=== PATIENT | male | born 1950 | race Caucasian/White ===

== ENCOUNTER → 2019-10-18 | Outpatient (CLI) | payer MEDICARE ==
[~2019-10-18] MED LIST: ANUSOL-HC25 MG RC; ASPIRIN81 M1 PO; CLARITIN10 MG PO; COUMADIN4 M1 PO; DIGOXIN0.125 MG PO; DIOVAN40 MG PO; GLYBURIDE5 MG PO; HUMALOG100 UNIT/2 SQ; HYDROCODONE BIT1 T11 PO; LIPITOR40 MG PO; LOPRESSOR100 M1 PO; MEDROL DOSEPAK4 MG PO; METFORMIN500 MG PO; METOPROLOL SR50 MG PO; NEURONTIN300 MG PO; NOVOLOG 70/30 M10 ML; PHENERGAN25 M1 PO; PRILOSEC20 MG PO; ROPINIROLE HYD0.5 MG PO; VIBRAMYCIN100 MG PO; ZANTAC 150150 MG PO; ZYRTEC10 MG PO
[2019-10-18 10:08] LABS: BASO % 0.4 % (0.0-1.0); EOS # 0.2 10*3/uL (0.0-0.4); EOS % 3.1 % (1.0-4.0); HEMATOCRIT 43.5 % (42.0-52.0); HEMOGLOBIN 13.8 g/dl (14.0-18.0); LYMPH # 2.7 10*3/uL (1.3-4.4); LYMPH % 36.2 % (27.0-41.0); MEAN CORPUSCULAR HGB 29.2 pg (27.0-31.0); MEAN CORPUSCULAR HGB CONC 31.7 g/dl (33.0-37.0); MEAN PLATELET VOLUME 11.1 fl (9.6-12.3); MONO # 0.7 10*3/uL (0.1-1.0); MONO % 9.7 % (3.0-9.0); NEUT # 3.7 10*3/uL (2.3-7.9); NEUT % 50.3 % (47.0-73.0); PLATELET COUNT AUTOMATED 244 10*3/uL (130-400); RED BLOOD COUNT 4.73 10*6/uL (4.50-5.90); RETICULOCYTE % 2.07 % (0.50-2.50); WHITE BLOOD COUNT 7.4 10*3/uL (4.8-10.8)
[2019-10-18 10:32] LABS: ALBUMIN 2.7 gm/dl (3.1-4.5); POTASSIUM 4.1 mmol/L (3.5-5.1)
[2019-10-18 10:44] LABS: CREATININE 1.66 mg/dL (0.70-1.30); THYROID STIM HORMONE (HS) 4.76 uIU/ml (0.358-4.75); THYROXINE (T4) TOTAL 10.6 ug/dl (4.5-12.1); TOTAL PROTEIN 7.4 gm/dL (6.4-8.2)
[2019-10-18 12:01] LABS: FERRITIN 49.6 ng/mL (22.0-322.0); VITAMIN D, 25-HYDROXY 31.2 ng/mL (30-100)
== END | disposition home or self-care (01) ==
LOC: LAB 09:10
PROVIDERS: Family Medicine
DX: R79.89 Other specified abnormal findings of blood chemistry (principal); R53.83 Other fatigue; E55.9 Vitamin D deficiency, unspecified; Z79.899 Other long term (current) drug therapy

== ENCOUNTER → 2019-10-20 | Outpatient (CLI) | payer MEDICARE ==
[2019-10-20 17:06] LABS: BILIRUBIN NEGATIVE (NEGATIVE); BLOOD 1+ (NEGATIVE); CLARITY CLEAR (CLEAR); COLOR YELLOW (YELLOW); GLUCOSE 3+ (NEGATIVE); KETONE NEGATIVE (NEGATIVE); LEUKO ESTERASE NEGATIVE (NEGATIVE); NITRITE NEGATIVE (NEGATIVE); SPECIFIC GRAVITY 1.015 (1.005-1.030); UROBILINOGEN 0.2 E.U./dl (0.2-1.0)
[2019-10-20 17:07] LABS: BACTERIA 1+; HYALINE CAST 0-2; RBC 0-2 rbc/hpf (0-2)
== END | disposition home or self-care (01) ==
LOC: LAB 15:44
PROVIDERS: Family Medicine
DX: E55.9 Vitamin D deficiency, unspecified (principal); R79.89 Other specified abnormal findings of blood chemistry; R53.83 Other fatigue; Z79.899 Other long term (current) drug therapy

== ENCOUNTER → 2019-11-10 | Outpatient (CLI) | payer MEDICARE | END | disposition home or self-care (01) | LOC: RESCLI 00:33 | DX: I13.10 Hypertensive heart and chronic kidney disease without heart failure, with stage 1 through stage 4 chronic kidney disease, or unspecified chronic kidney disease (principal); N18.3 Chronic kidney disease, stage 3 (moderate); E11.22 Type 2 diabetes mellitus with diabetic chronic kidney disease; E11.42 Type 2 diabetes mellitus with diabetic polyneuropathy; E78.5 Hyperlipidemia, unspecified; J45.909 Unspecified asthma, uncomplicated; K21.9 Gastro-esophageal reflux disease without esophagitis; N40.0 Benign prostatic hyperplasia without lower urinary tract symptoms; E78.1 Pure hyperglyceridemia; N32.89 Other specified disorders of bladder; Z79.899 Other long term (current) drug therapy; Z98.890 Other specified postprocedural states ==

== ENCOUNTER → 2019-11-16 | Outpatient (CLI) | payer MEDICARE ==
[2019-11-16 13:20] LABS: ALBUMIN 2.6 gm/dl (3.1-4.5); CREATININE 1.57 mg/dL (0.70-1.30); POTASSIUM 3.6 mmol/L (3.5-5.1); TOTAL PROTEIN 7.4 gm/dL (6.4-8.2)
== END | disposition home or self-care (01) ==
LOC: LAB 12:17
PROVIDERS: Urology
DX: Z12.5 Encounter for screening for malignant neoplasm of prostate (principal); I10 Essential (primary) hypertension; D40.0 Neoplasm of uncertain behavior of prostate; R53.83 Other fatigue

== ENCOUNTER → 2019-11-18 | Outpatient (CLI) | payer MEDICARE ==
[2019-11-18 12:41] LABS: BILIRUBIN NEGATIVE (NEGATIVE); BLOOD 1+ (NEGATIVE); CLARITY SL CLOUDY (CLEAR); COLOR YELLOW (YELLOW); GLUCOSE 1+ (NEGATIVE); KETONE NEGATIVE (NEGATIVE); LEUKO ESTERASE NEGATIVE (NEGATIVE); NITRITE NEGATIVE (NEGATIVE); UROBILINOGEN 0.2 E.U./dl (0.2-1.0)
[2019-11-18 12:44] LABS: BACTERIA 3+
== END | disposition home or self-care (01) ==
LOC: LAB 00:59 → CT 11:00 → LAB 11:00
PROVIDERS: Nurse Practitioner Family
DX: I12.9 Hypertensive chronic kidney disease with stage 1 through stage 4 chronic kidney disease, or unspecified chronic kidney disease (principal); N18.9 Chronic kidney disease, unspecified; I25.10 Atherosclerotic heart disease of native coronary artery without angina pectoris; R35.0 Frequency of micturition; R53.83 Other fatigue; D40.0 Neoplasm of uncertain behavior of prostate; N28.1 Cyst of kidney, acquired; K42.9 Umbilical hernia without obstruction or gangrene; K76.0 Fatty (change of) liver, not elsewhere classified

== ENCOUNTER → 2020-03-16 | Outpatient (CLI) | payer MEDICARE | END | disposition home or self-care (01) | LOC: RESCLI 01:53 | DX: I12.9 Hypertensive chronic kidney disease with stage 1 through stage 4 chronic kidney disease, or unspecified chronic kidney disease (principal); E11.22 Type 2 diabetes mellitus with diabetic chronic kidney disease; N18.3 Chronic kidney disease, stage 3 (moderate); E78.5 Hyperlipidemia, unspecified; E11.42 Type 2 diabetes mellitus with diabetic polyneuropathy; K21.9 Gastro-esophageal reflux disease without esophagitis; J30.2 Other seasonal allergic rhinitis; N32.81 Overactive bladder; E53.8 Deficiency of other specified B group vitamins; E55.9 Vitamin D deficiency, unspecified; R53.83 Other fatigue; G47.33 Obstructive sleep apnea (adult) (pediatric); Z79.899 Other long term (current) drug therapy ==

== ENCOUNTER → 2020-04-11 | Outpatient (CLI) | payer MEDICARE ==
--- NOTE | 2020-04-10 10:40 | NUR ---
RESTING SCANS COMPLETED. BROUGHT INTO STRESS TEST ROOM. PT STATES, "I TOOK A SIP OF COKE WHILE WAITING FOR STRESS TEST." DR. WESLEY NOTIFIED AND REMAINDER OF STRESS TEST CANCELLED AND RESCHEDULED FOR AM. INSTRUCTION GIVEN TO PT AND OPHTHALMOLOGY ASSISTANT. IV DISCONTINUED AND DISCHARGED IN STABLE CONDITION.
[~2020-04-11] MED LIST changes: +ARNUITY ELLIPT50 MCG INH; +HUMULIN R500 UNIT/1 SC; +HUMULIN R500 UNIT/1 SQ; +LOTEMAX 0.5% 1010 ML OS; +MAGNESIUM OXID400 MG PO; +MONTELUKAST SOD10 MG PO; +PEPCID AC10 M2 PO; +PREDNISOLONE ACE5 M5 OU; +PROAIR HFA8.5 GM INH; +PROLENSA3 ML OU; +SODIUM BICARBO650 MG PO; +SOOTHE DEVI; +SPIRIVA18 MCG PO; +VANICREAM453 GM T; +VENT7GM INH; +VESICARE5 MG PO; +VICTOZA 2-0.6 MG/0.1 SC; +VIT B12 PO; +VIT D PO; +[UNRECOGNIZED DRUG - OTHER] OS
--- NOTE | 2020-04-11 10:00 | NUR ---
INFORMED CONSENT OBTAINED FOR LEXISCAN NUCLEAR STRESS TEST WITH DR. WESLEY. RESTING EKG NSR WITH A RESTING HR OF 73 WITH BP OF 122/74. LUNGS CLEAR WITH SPO2 OF 100% ON ROOM AIR. PT COMPLETED A 1:00 LEXISCAN PROTOCOL RECEIVING LEXISCAN 0.4 MG IV OVER 10 SECONDS. HAD NO CHEST PAIN OR ANY ST CHANGES. DID C/O FEELING DIZZY AND NAUSEA THAT WAS RELIEVED IN RECOVERY. HAD A PEAK HR OF 91 WITH BP OF 122/64. LAST RECOVERY HR OF 94 WITH BP OF 124/68. AWAITING SCANNING IN STABLE CONDITION.
== END | disposition home or self-care (01) ==
LOC: CARD 04-10 00:20
DX: R94.31 Abnormal electrocardiogram [ECG] [EKG] (principal); I25.9 Chronic ischemic heart disease, unspecified; R94.39 Abnormal result of other cardiovascular function study

== ENCOUNTER → 2020-11-22 | Outpatient (CLI) | payer MEDICARE | END | disposition home or self-care (01) | LOC: RESCLI 07:37 | PROVIDERS: ATTEND Internal Medicine Nephrology | DX: I12.9 Hypertensive chronic kidney disease with stage 1 through stage 4 chronic kidney disease, or unspecified chronic kidney disease (principal); N18.30 Chronic kidney disease, stage 3 unspecified; E78.5 Hyperlipidemia, unspecified; E11.42 Type 2 diabetes mellitus with diabetic polyneuropathy; J45.909 Unspecified asthma, uncomplicated; K21.9 Gastro-esophageal reflux disease without esophagitis; E55.9 Vitamin D deficiency, unspecified; N32.81 Overactive bladder; G47.33 Obstructive sleep apnea (adult) (pediatric); J45.901 Unspecified asthma with (acute) exacerbation; Z79.899 Other long term (current) drug therapy ==

== ENCOUNTER → 2021-01-29 | Outpatient (CLI) | payer MEDICARE | END | disposition home or self-care (01) | LOC: RESCLI 00:11 | PROVIDERS: ATTEND Internal Medicine | DX: I10 Essential (primary) hypertension (principal); E78.5 Hyperlipidemia, unspecified; J45.909 Unspecified asthma, uncomplicated; K21.9 Gastro-esophageal reflux disease without esophagitis; E55.9 Vitamin D deficiency, unspecified; N32.81 Overactive bladder; G47.33 Obstructive sleep apnea (adult) (pediatric); E11.42 Type 2 diabetes mellitus with diabetic polyneuropathy; G62.9 Polyneuropathy, unspecified; Z79.4 Long term (current) use of insulin; Z79.899 Other long term (current) drug therapy; Z98.890 Other specified postprocedural states; Z88.8 Allergy status to other drugs, medicaments and biological substances ==

== ENCOUNTER → 2021-04-11 | Outpatient (CLI) | payer MEDICARE | END | disposition home or self-care (01) | LOC: RESCLI 04:56 | PROVIDERS: ATTEND Internal Medicine | DX: I10 Essential (primary) hypertension (principal); E78.5 Hyperlipidemia, unspecified; E11.42 Type 2 diabetes mellitus with diabetic polyneuropathy; K21.9 Gastro-esophageal reflux disease without esophagitis; J30.2 Other seasonal allergic rhinitis; E55.9 Vitamin D deficiency, unspecified; Z79.899 Other long term (current) drug therapy; Z98.890 Other specified postprocedural states ==

== ENCOUNTER 2021-06-11 10:46 | Inpatient (IN) | payer MEDICARE ==
[~2021-06-11] VITALS: Ht 180.3 cm; Wt 120.7 kg
[2021-06-11 11:00] VITALS: BP 147/72
[2021-06-11 12:00] VITALS: BP 150/74
[2021-06-11 12:31] LABS: MEAN CELL VOLUME 90.3 fl (80.0-94.0); MEAN CORPUSCULAR HGB 28.7 pg (27.0-31.0); MEAN CORPUSCULAR HGB CONC 31.8 g/dl (33.0-37.0); MEAN PLATELET VOLUME 10.2 fl (9.6-12.3); PLATELET COUNT AUTOMATED 224 10*3/uL (130-400); RED BLOOD COUNT 4.21 10*6/uL (4.50-5.90); RED CELL DISTRI WIDTH 13.7 % (0-14.5); WHITE BLOOD COUNT 6.8 10*3/uL (4.8-10.8)
[2021-06-11 12:45] LABS: ALBUMIN 2.9 gm/dl (3.1-4.5); CREATININE 1.85 mg/dL (0.70-1.30); POTASSIUM 4.1 mmol/L (3.5-5.1); TOTAL PROTEIN 7.6 gm/dL (6.4-8.2)
[2021-06-11 13:00] LABS: PLATELET SUFFICIENCY NORMAL (NORMAL); TOTAL CELLS COUNTED 100 #CELLS
[2021-06-11 16:00] VITALS: BP 150/74
[2021-06-11 16:57] LABS: BILIRUBIN Negative (Negative); BLOOD 2+ (Negative); CLARITY Clear (Clear); COLOR Yellow (Yellow); GLUCOSE Trace (Negative); KETONE Negative (Negative); LEUKO ESTERASE Negative (Negative); NITRITE Negative (Negative); PH 5.5 (4.5-8.0); UROBILINOGEN 0.2 E.U./dl (0.0-1.0)
[2021-06-11 17:33] LABS: BACTERIA 2+; EPITHELIAL CELLS 0-2
[2021-06-11 20:00] VITALS: BP 150/74
[2021-06-11 22:20] VITALS: BP 155/73
[2021-06-12 06:52] LABS: BASO % 0.2 % (0.0-1.0); HEMATOCRIT 38.2 % (42.0-52.0); LYMPH % 18.8 % (27.0-41.0); MEAN CELL VOLUME 92.3 fl (80.0-94.0); MEAN CORPUSCULAR HGB 28.3 pg (27.0-31.0); MEAN CORPUSCULAR HGB CONC 30.6 g/dl (33.0-37.0); MEAN PLATELET VOLUME 10.8 fl (9.6-12.3); MONO # 0.2 10*3/uL (0.1-1.0); MONO % 3.5 % (3.0-9.0); NEUT % 77.1 % (47.0-73.0); PLATELET COUNT AUTOMATED 227 10*3/uL (130-400); RED BLOOD COUNT 4.14 10*6/uL (4.50-5.90); RED CELL DISTRI WIDTH 13.6 % (0-14.5); WHITE BLOOD COUNT 5.2 10*3/uL (4.8-10.8)
[2021-06-12 07:08] LABS: TOTAL PROTEIN 7.6 gm/dL (6.4-8.2)
[2021-06-12 07:15] LABS: ALBUMIN 2.6 gm/dl (3.1-4.5); CREATININE 1.9 mg/dL (0.70-1.30)
[2021-06-12 07:32] LABS: VITAMIN D, 25-HYDROXY 47.7 ng/mL (30-100)
[2021-06-12 07:48] LABS: POTASSIUM 5.2 mmol/L (3.5-5.1); THYROID STIM HORMONE (HS) 0.862 uIU/ml (0.358-4.75)
[2021-06-12 07:53] LABS: ACT PARTIAL THROMBO TIME 32.5 SECONDS (20.0-32.1); INTERNATIONAL NORM RATIO 1.1 (2.0-3.5)
[2021-06-12 08:00] VITALS: BP 137/67
[2021-06-12 12:00] VITALS: BP 139/54
[2021-06-12] MEDS ORDERED: LIPITOR80 MG PO (14:08)
[2021-06-12] MEDS ORDERED: FAMOTIDINE20 M1 PO (14:09)
[2021-06-12] MEDS ORDERED: AMLODIPINE BESYL5 MG PO (14:10)
[2021-06-12] MEDS ORDERED: CARVEDILOL25 MG PO (14:11)
[2021-06-12] MEDS ORDERED: VICTOZA 2-0.6 MG/0.1 SC (14:18)
[2021-06-12] MEDS ORDERED: NOVOLIN 70100 UNIT/1 SC (14:20)
[2021-06-12] MEDS ORDERED: NOVOLOG MI100 UNIT/2 SC ×2 (14:21→14:28)
[2021-06-12] MEDS ORDERED: HUMALOG100 UNIT/2 SC (14:25)
[2021-06-12] MEDS ORDERED: OMEPRAZOLE40 MG PO (14:31)
[2021-06-12] MEDS ORDERED: HUMALOG 50/50 SC (14:53)
[2021-06-12 15:42] VITALS: BP 149/50
[2021-06-12 20:00] VITALS: BP 150/74
[2021-06-13] VITALS: BP 154/80
[2021-06-13 07:56] LABS: ALBUMIN 2.6 gm/dl (3.1-4.5); CREATININE 2.01 mg/dL (0.70-1.30)
[2021-06-13 07:59] LABS: TOTAL PROTEIN 7.3 gm/dL (6.4-8.2)
[2021-06-13 08:00] VITALS: BP 163/75
[2021-06-13 08:06] LABS: BASO % 0.1 % (0.0-1.0); HEMATOCRIT 34.8 % (42.0-52.0); LYMPH # 1.3 10*3/uL (1.3-4.4); LYMPH % 15.9 % (27.0-41.0); MEAN CELL VOLUME 89.7 fl (80.0-94.0); MEAN CORPUSCULAR HGB 28.6 pg (27.0-31.0); MEAN CORPUSCULAR HGB CONC 31.9 g/dl (33.0-37.0); MEAN PLATELET VOLUME 11.3 fl (9.6-12.3); MONO # 0.8 10*3/uL (0.1-1.0); MONO % 9.5 % (3.0-9.0); NEUT % 74.3 % (47.0-73.0); PLATELET COUNT AUTOMATED 241 10*3/uL (130-400); RED BLOOD COUNT 3.88 10*6/uL (4.50-5.90); RED CELL DISTRI WIDTH 13.3 % (0-14.5); WHITE BLOOD COUNT 8.1 10*3/uL (4.8-10.8)
[2021-06-13 12:00] VITALS: BP 157/77
[2021-06-13 16:00] VITALS: BP 126/74; BP 137/76
[2021-06-14] VITALS: BP 160/50
[2021-06-14 07:02] LABS: BASO % 0.1 % (0.0-1.0); HEMATOCRIT 37.3 % (42.0-52.0); LYMPH # 1.2 10*3/uL (1.3-4.4); LYMPH % 13.5 % (27.0-41.0); MEAN CELL VOLUME 90.3 fl (80.0-94.0); MEAN CORPUSCULAR HGB 28.3 pg (27.0-31.0); MEAN CORPUSCULAR HGB CONC 31.4 g/dl (33.0-37.0); MEAN PLATELET VOLUME 10.9 fl (9.6-12.3); MONO # 0.5 10*3/uL (0.1-1.0); MONO % 5.2 % (3.0-9.0); NEUT # 6.9 10*3/uL (2.3-7.9); NEUT % 80.7 % (47.0-73.0); PLATELET COUNT AUTOMATED 263 10*3/uL (130-400); RED BLOOD COUNT 4.13 10*6/uL (4.50-5.90); RED CELL DISTRI WIDTH 13.2 % (0-14.5); WHITE BLOOD COUNT 8.6 10*3/uL (4.8-10.8)
[2021-06-14 07:24] LABS: POTASSIUM 4.7 mmol/L (3.5-5.1)
[2021-06-14 07:31] LABS: ALBUMIN 2.6 gm/dl (3.1-4.5); CREATININE 1.8 mg/dL (0.70-1.30); TOTAL PROTEIN 7.5 gm/dL (6.4-8.2)
[2021-06-14 08:00] VITALS: BP 143/65
[2021-06-14 12:00] VITALS: BP 140/70
[2021-06-14] MEDS ORDERED: DOXYCYCLINE HY100 M3 PO (12:43)
[2021-06-14] MEDS ORDERED: DECADRON6 M1 PO (12:43)
== END 2021-06-14 14:24 | disposition home or self-care (01) | DRG 871 ==
LOC: ED 10:46 → 4E 18:32 → EDHOLD 18:32 → 4E 19:09
PROVIDERS: Family Medicine; Hospitalist; Physician Assistant; ADMIT Student in an Organized Health Care Education/Training Program; ATTEND Student in an Organized Health Care Education/Training Program
DX: A41.9 Sepsis, unspecified organism (principal); U07.1 COVID-19; J12.82 Pneumonia due to coronavirus disease 2019; J96.00 Acute respiratory failure, unspecified whether with hypoxia or hypercapnia; E43 Unspecified severe protein-calorie malnutrition; D64.9 Anemia, unspecified; F17.210 Nicotine dependence, cigarettes, uncomplicated; E11.42 Type 2 diabetes mellitus with diabetic polyneuropathy; R65.20 Severe sepsis without septic shock; E11.649 Type 2 diabetes mellitus with hypoglycemia without coma; I48.0 Paroxysmal atrial fibrillation; E87.5 Hyperkalemia; E78.2 Mixed hyperlipidemia; K21.9 Gastro-esophageal reflux disease without esophagitis; E11.65 Type 2 diabetes mellitus with hyperglycemia; Z88.2 Allergy status to sulfonamides; Z90.49 Acquired absence of other specified parts of digestive tract; Z83.3 Family history of diabetes mellitus; Z82.5 Family history of asthma and other chronic lower respiratory diseases; Z80.8 Family history of malignant neoplasm of other organs or systems; Z79.51 Long term (current) use of inhaled steroids; Z79.4 Long term (current) use of insulin; Z79.899 Other long term (current) drug therapy; Z79.1 Long term (current) use of non-steroidal anti-inflammatories (NSAID); Z68.31 Body mass index [BMI] 31.0-31.9, adult